=== PATIENT | female | born 1975 | race Caucasian/White ===

== ENCOUNTER 2024-10-30 14:46 | Outpatient (CLI) | payer MEDICARE | END 2024-10-30 14:47 | disposition home or self-care (01) | LOC: CSHMRI 14:46 | PROVIDERS: ATTEND Orthopaedic Surgery | DX: S46.011A Strain of muscle(s) and tendon(s) of the rotator cuff of right shoulder, initial encounter (principal) ==

== ENCOUNTER 2025-10-07 18:29 | Emergency (ER) | payer MEDICARE ==
[2025-10-07 19:20] LABS: #Basophils 0.03 10x3/uL (0.0-0.2); #Eosinophils 0.28 10x3/uL (0.0-0.5); #Monocytes 0.68 10x3/uL (0.0-1.1); #Neutrophils 3.13 10x3/uL (1.5-8.4); %Basophils 0.4 % (0.0-2.0); %Eosinophils 3.6 % (0.0-6.0); %Lymphocytes 46.2 % (18.0-47.0); %Monocytes 8.9 % (0.0-10.0); %Neutrophils 40.8 % (40.0-75.0); Hematocrit 39.3 % (34.9-44.5); Hemoglobin 13.0 g/dL (12.0-15.5); Mean Corpuscular Hemoglobin 29.2 pg (27.0-33.0); Mean Corpuscular Volume 88.3 fL (81.6-98.3); Platelet Count 207 10x3/uL (150-450); Red Blood Cell (RBC) Count 4.45 10x6/uL (3.90-5.03); White Blood Cell (WBC) Count 7.68 10x3/uL (3.5-10.5)
[2025-10-07 19:35] LABS: ALT (SGPT) 27 U/L (Less than 34); AST (SGOT) 37 U/L (11-34); Albumin 3.7 g/dL (3.1-4.5); Alkaline Phosphatase 85 U/L (40-110); Anion Gap 15 mmol/L (10-20); BUN (Urea Nitrogen) 23 mg/dL (7.0-18.7); Bilirubin, Total 0.4 mg/dL (0.3-1.2); Calc. Creatinine Clearance 0 mL/min (70-130); Calcium 8.7 mg/dL (7.8-10.44); Carbon Dioxide 24 mmol/L (22-29); Chloride 103 mmol/L (98-107); Globulin 2.9 g/dL (2.4-3.5); Glucose 97 mg/dL (70-105); Potassium 3.8 mmol/L (3.5-5.1); Sodium 138 mmol/L (136-145)
[2025-10-07 19:39] LABS: Troponin I Less than 0.010 ng/mL (< 0.028)
[2025-10-07] MEDS ORDERED: predniSONE 20 MG TAB ONE (19:53)
[2025-10-07] MEDS ORDERED: Ketorolac Tromethamine 30 MG (1 mL) VIAL ONE (19:53)
[2025-10-07] MEDS ORDERED: Magnesium 2 GM/50 ML BAG (IN WATER) ONE (19:53)
[2025-10-07] MEDS ORDERED: Albuterol 2.5 MG (3 mL) NEB ONE (19:58)
[2025-10-07] MEDS ORDERED: Ipratropium Bromide 2.5 ml Neb ONE (19:59)
== END 2025-10-07 23:09 | disposition home or self-care (01) ==
LOC: CSHERS 18:29
DX: J45.901 Unspecified asthma with (acute) exacerbation (principal); R51.9 Headache, unspecified; I10 Essential (primary) hypertension
CPT/HCPCS: 70450; 71045; 80053; 83880; 84484; 85025; 87428; 93005; 94644; 94760; J1885; J3475; J7644; 96374; 96375; J7512; J7611